=== PATIENT | male | born 1950 | race Caucasian/White ===

== ENCOUNTER 2020-06-15 07:29 | Day surgery (SDC) | payer MEDICARE, OTHER ==
[~2020-06-15] VITALS: Ht 180.3 cm; Wt 86.0 kg
[~2020-06-15 07:29] MED LIST: ASPIR 8181 M1 PO; ATEN50 PO; ATOR20 PO; ATORVASTATIN CA40 MG PO; Aspir 8181 MG PO; CLOP75 PO; OMEP20ER PO; OXYM.05NI; PANT40 PO; TENORMIN50 MG PO
--- NOTE | 2020-06-15 08:54 | NUR ---
06/15/20 0854 Preethi Borges PATIENT AND WERE NOTIFIED THAT PRIOR CASE IS RUNNING OVER AND HE WILL BE DELAYED AN UNKNOWN AMOUNT OF TIME. PATIENT AND BOTH VERBALIZE UNDERSTANDING. PATIENT HAS NO NEEDS AT THIS TIME. CALL LIGHT WITHIN REACH
== END 2020-06-15 10:43 | disposition home or self-care (01) ==
LOC: ORSCSDS 07:29
PROVIDERS: Surgery
PROC: 0DBM8ZX Excision of Descending Colon, Via Natural or Artificial Opening Endoscopic, Diagnostic (ICD-10-PCS; principal; 2020-06-15 08:45)
PROC: 0DBP8ZX Excision of Rectum, Via Natural or Artificial Opening Endoscopic, Diagnostic (ICD-10-PCS; principal; 2020-06-15 08:45)
PROC: 0DBN8ZX Excision of Sigmoid Colon, Via Natural or Artificial Opening Endoscopic, Diagnostic (ICD-10-PCS; principal; 2020-06-15 08:45)
DX: Z12.11 Encounter for screening for malignant neoplasm of colon (principal); K63.5 Polyp of colon; K62.1 Rectal polyp; Z86.010 Personal history of colon polyps; I10 Essential (primary) hypertension; E78.00 Pure hypercholesterolemia, unspecified; G47.33 Obstructive sleep apnea (adult) (pediatric); I25.2 Old myocardial infarction; N40.0 Benign prostatic hyperplasia without lower urinary tract symptoms; Z79.82 Long term (current) use of aspirin; Z79.899 Other long term (current) drug therapy; F17.210 Nicotine dependence, cigarettes, uncomplicated
CPT/HCPCS: 88305; J2704; J7120